=== PATIENT | male | born 1955 | race Caucasian/White ===

== ENCOUNTER 2025-05-23 13:26 | Emergency (ER) | payer MEDICARE, OTHER, SELFPAY ==
[2025-05-23 13:31] VITALS: BP 131/78
[2025-05-23 13:57] VITALS: BP 126/102
[2025-05-23 14:00] VITALS: BP 149/99
--- NOTE | 2025-05-23 14:06 | ED.MUSCINJ ---
HPI-Injury
<Rob Valentin PA-C - Last Filed: 05/23/25 15:55>
General
Chief Complaint: Fall
Source: patient
Exam Limitations: none
Time Seen by Provider: 05/23/25 14:02
History of Present Illness-Injury
Initial Injury comments:
69-year-old male fell off a ladder 10 feet in the air. Complains of left flank pain. He is not anticoagulated. Does not take any medications. He does not think he lost consciousness. He is brought here by his in private vehicle. He notes
the pain is significantly worse with weight on his right leg. No other complaints.
Phy Exam
<Rob Valentin PA-C - Last Filed: 05/23/25 15:55>
Physical Exam
Physical Exam:
General: Uncomfortable appearing male no acute respiratory distress HEENT normal cephalic atraumatic heart: Regular rate and rhythm
Lungs: Breath sounds heard bilaterally abdomen is soft nontender no ecchymosis. Tender over the left flank and lower lumbar spine no deformities
Musculoskeletal exam: The lower lumbar spine is tender. No deformities to the extremities
Injury Course
<Rob Valentin PA-C - Last Filed: 05/23/25 15:55>
Orders/Labs/Results
Orders:
Orders
05/23/25 14:03
CT Cervical Spine W/o Iv Contr Urgent
Comment:
Reason For Exam: fall
CT Chest/abd/pel W Iv Cont Urgent
Comment:
Reason For Exam: falll, left flank pain
CT Head W/o Iv Contrast Urgent
Comment:
Reason For Exam: fall
HYDROmorphone [Dilaudid] 1 mg IV NOW STA
05/23/25 14:12
UA [Urinalysis] Urgent
Date Specimen was Collected: 05/23/25
Time Specimen was Collected: 14:13
05/23/25 14:14
Type+Screen Urgent
Complete Blood Count/With Diff Urgent
Comprehensive Metabolic Panel Urgent
Lipase Urgent
Abnormal Lab Results
05/23/25
14:14
RBC 4.66 L 10^6/uL
(4.70-6.10)
Absolute Monos (auto) 0.9 H 10^3/uL
(0.1-0.6)
Monocytes % 10.3 H %
(1.7-9.3)
BUN 21 H mg/dl
(9-20)
05/23/25 14:14
05/23/25 14:14
<Dorian Yen, DO - Last Filed: 05/23/25 15:22>
Orders/Labs/Results
Orders:
Orders
05/23/25 14:03
CT Cervical Spine W/o Iv Contr Urgent
Comment:
Reason For Exam: fall
CT Chest/abd/pel W Iv Cont Urgent
Comment:
Reason For Exam: falll, left flank pain
CT Head W/o Iv Contrast Urgent
Comment:
Reason For Exam: fall
HYDROmorphone [Dilaudid] 1 mg IV NOW STA
05/23/25 14:12
UA [Urinalysis] Urgent
Date Specimen was Collected: 05/23/25
Time Specimen was Collected: 14:13
05/23/25 14:14
Type+Screen Urgent
Complete Blood Count/With Diff Urgent
Comprehensive Metabolic Panel Urgent
Lipase Urgent
Abnormal Lab Results
05/23/25
14:14
RBC 4.66 L 10^6/uL
(4.70-6.10)
Absolute Monos (auto) 0.9 H 10^3/uL
(0.1-0.6)
Monocytes % 10.3 H %
(1.7-9.3)
BUN 21 H mg/dl
(9-20)
05/23/25 14:14
05/23/25 14:14
<Rob Valentin PA-C - Last Filed: 05/23/25 15:55>
MDM/Problems Addressed
Differential Diagnosis Includes:
Fall from significant height with left flank pain. Consider contusion versus internal bleeding versus fracture. I was asked to come into the room immediately upon the patient's arrival. Pain medication ordered. CT of the head cervical spine
chest abdomen pelvis was ordered secondary to the mechanism
Vital signs are stable
<Rob Valentin PA-C - Last Filed: 05/23/25 15:55>
*Pulse Oximetry
SaO2: 95
Oxygen Mode of Delivery: Room air
Patient hypoxic: no
*Critical Care Note
Total Time (30-74mins, 75-104mins- exclusive of procedures): Not Applicable
<Rob Valentin PA-C - Last Filed: 05/23/25 15:55>
Update Note
Update Note:
CTs reviewed there is L3 transverse process fracture no other injury noted. Patient notified of these results and reassured. Will prescribe muscle relaxers and pain medicine. Crutches supplied. Stable for discharge with orthopedic follow-up
ED Attending Note
<Rob Valentin PA-C - Last Filed: 05/23/25 15:55>
-
Portions of this chart may have been created with voice recognition software.� Occasional wrong word or��sound alike� substitutions may have occurred due to the inherent limitations of voice recognition software.
<Dorian Yen, - Last Filed: 05/23/25 15:22>
ED Attending Note
Patient seen and examined by attending physician: Yes
ED Attending Note:
I have reviewed and agree with history treatment plan by Rob Valentin PA-C. My exam revealed
Physical Exam
General: Moderate distress
Neck: supple. no meningeal signs. normal posterior pharynx
Heart: s1/s2 regular rate and rhythm, no murmur. equal radial
pulses.
HEENT: Pupils equal round reactive to light, EOMI
Lungs: no acute respiratory distress. clear bilaterally
Abdomen: normal bowel sounds. not tender. no CVAT
back: Tender to palpitation lumbar region, abdomen soft no bruising
Neuro: alert and oriented. no focal neurological deficits cranial nerves II through XII intact
Skin: no rash
Psychiatric: well kept. interactive and cooperative
Extremities: no edema. no calf tenderness. negative homans. good distal pulses
Discharge Plan
Departure
Patient Disposition: Home (Routine Discharge)
Date of Disposition: 05/23/25
Time of Disposition: 15:49
Patient with high blood pressure during this ER visit?: No
Discharge Problem:
Fracture of transverse process of lumbar vertebra
Instructions: Muscle, joint, and bone pain (DC)
Prescriptions:
New
diazepam [Valium] 5 mg tablet
5 mg PO Q8H PRN (Reason: muscle spasm) Qty: 10 0RF
ibuprofen 600 mg tablet
600 mg PO TID PRN (Reason: Pain) Qty: 14 0RF
Referrals:
Simone Fagan MD [Active, Orthopedics]
Activity Restrictions/Additional Instructions:
Rest. Avoid heavy lifting. Use warm compresses to the area please muscle relaxer and anti-inflammatories as directed. Follow-up with orthopedics
Interventions
Interventions:
*Risk Screen - Suicide Last Done: 05/23/25 13:33
*General Assessment Last Done: 05/23/25 14:00
*Neglect/Abuse Screening Last Done: 05/23/25 13:33
ED-Musculoskeletal Assessment Last Done: 05/23/25 13:59
ED- Neurological Assessment Last Done: 05/23/25 13:59
ED-Skin Assessment Last Done: 05/23/25 13:59
Discharge Date and Time
Print Language: GEORGIAN
[2025-05-23] MEDS: DILAUDID 1 MG IV (14:09)
[2025-05-23 14:24] LABS: Hematocrit 42.3 % (39.0-52.0); Hemoglobin 14.4 g/dL (13.0-18.0); Mean Corp Hgb Conc. 34.0 g/dL (33.0-37.0); Mean Corpuscular Volume 90.8 fL (80.0-94.0); Nucleated Red Blood Cells % 0 % (-); Platelet Count 318 10^3/uL (130-400); Red Cell Dist. Width 13.0 % (11.5-14.5)
[2025-05-23 14:35] LABS: ALT (SGPT) 27 U/L (0-50); AST (SGOT) 27 U/L (17-59); Albumin 4.7 g/dl (3.5-5.0); Alkaline Phosphatase 84 U/L (38-126); Blood Urea Nitrogen 21 mg/dl (9-20); Calcium 9.7 mg/dl (8.4-10.2); Carbon Dioxide 24 mmol/L (22-30); Chloride 104 mmol/L (98-107); Glucose 98 mg/dl (70-99); Lipase 97 U/L (23-300); Potassium 3.9 mmol/L (3.5-5.1); Sodium 136 mmol/L (135-145); Total Protein 7.7 g/dl (6.3-8.2); eGFR > 60.00
[2025-05-23 16:00] VITALS: BP 118/78
== END 2025-05-23 16:38 | disposition home or self-care (01) ==
LOC: EMR 13:26
PROVIDERS: Physician Assistant; EMERGENCY PHYSICIAN Emergency Medicine
DX: S32.038A Other fracture of third lumbar vertebra, initial encounter for closed fracture (principal); W11.XXXA Fall on and from ladder, initial encounter
CPT/HCPCS: 99284; 96374; 70450; 71260; 72125; 74177; 80053; 83690; 85025; 86850; 86900; 86901; Q9967